=== PATIENT | female | born 1980 | race Caucasian/White ===

== ENCOUNTER 2020-05-24 14:04 | Emergency (ER) | payer OTHER ==
[~2020-05-24] VITALS: Ht 172.7 cm; Wt 73.9 kg
== END 2020-05-24 16:15 | disposition home or self-care (01) ==
LOC: ED 14:04
DX: T83.84XA Pain due to genitourinary prosthetic devices, implants and grafts, initial encounter (principal); Z88.8 Allergy status to other drugs, medicaments and biological substances; Z88.5 Allergy status to narcotic agent
CPT/HCPCS: 99283

== ENCOUNTER 2020-11-22 09:27 | Emergency (ER) | payer OTHER ==
[~2020-11-22] VITALS: Ht 172.7 cm; Wt 73.9 kg
[2020-11-22] MEDS ORDERED: METRONIDAZOLE500 MG PO (10:07)
== END 2020-11-22 12:30 | disposition home or self-care (01) ==
LOC: ED 09:27
DX: N13.2 Hydronephrosis with renal and ureteral calculous obstruction (principal); Z88.8 Allergy status to other drugs, medicaments and biological substances; Z88.5 Allergy status to narcotic agent
CPT/HCPCS: 74176; 80053; 81001; 84703; 85025; 99284-25

== ENCOUNTER 2021-11-23 20:45 | Emergency (ER) | payer OTHER ==
[~2021-11-23] VITALS: Ht 172.7 cm; Wt 69.0 kg
[~2021-11-23 20:45] MED LIST: METRONIDAZOLE500 MG PO
[2021-11-23] MEDS ORDERED: DOXYCYCLINE HY100 MG PO (21:14)
== END 2021-11-23 21:23 | disposition home or self-care (01) ==
LOC: ED 20:45
DX: L02.31 Cutaneous abscess of buttock (principal); L02.415 Cutaneous abscess of right lower limb; Z88.5 Allergy status to narcotic agent; Z88.6 Allergy status to analgesic agent
CPT/HCPCS: 99283; A9270

== ENCOUNTER 2022-09-23 10:02 | Day surgery (SDC) | payer OTHER ==
[~2022-09-23] VITALS: Ht 172.7 cm; Wt 72.2 kg
--- NOTE | ~2022-09-23 | OR ---
[facility] [address] [place], [place] [address] Draft DATE OF OPERATION: 09/23/2022 SURGEON: Janeth Jo DO PROCEDURE: Hysteroscopy Dilation and curettage. PREOPERATIVE DIAGNOSES: Abnormal uterine bleeding, thickened endometrial stripe on ultrasound. POSTOPERATIVE DIAGNOSES: Endometrial polyp, abnormal uterine bleeding. ANESTHESIA: Monitored anesthesia care. COMPLICATIONS: None. BLOOD LOSS: 5 mL. FINDINGS: Endometrial cavity distorted by a large smooth endometrial polyp based on the anterior left otherwise normal-appearing endometrium. Bilateral tubal ostia visualized. INDICATIONS: The patient is a 42-year-old female with history of having prolonged uterine bleeding. Endometrial biopsy in office was nondiagnostic due to heavy menstrual flow at the time. Risks, benefits, and alternatives to hysteroscopy D and C in the OR versus and office were discussed. The patient elected to proceed in the OR. Consents were signed. PROCEDURE IN DETAIL: The patient was taken back to the operating room where she was placed under monitored anesthesia care and positioned in dorsal lithotomy. She was prepped and draped in normal sterile fashion. Weighted speculum was placed in the vagina. Anterior lip of cervix was grasped with an Allis clamp. The cervix was easily sequentially dilated with Hegar dilators to accommodate a 6 mm scope. The scope was then advanced into the endometrial cavity using sterile saline as a distention media monitored by the Aquilex fluid distention system. Large polyp was noted as described above and initially only PATIENT NAME: ROUSSEAUGEMA OPERATIVE REPORT DATE OF : 78 REPORT #: [id number] PHYSICIAN: JANETH JO DO PCP: GRIFFIN FULTON MD REPORT IS CONFIDENTIAL AND NOT TO BE RELEASED WITHOUT AUTHORIZATION [address] [address] Draft the right tubal ostia could be visualized due to the base of the polyp obstructing visualization of the left tubal ostia. MyoSure Lite device was used to perform polypectomy followed by circumferential curettage of the endometrial cavity after which time bilateral tubal ostia were visualized with a normal-appearing endometrial cavity. All instrumentation was removed. Fluid deficit was noted to be 135 mL. Endometrial polyp and endometrial curettings were sent to pathology as a single specimen. The patient was noted to have excellent hemostasis. Sponge and instrument counts were correct. The patient was taken to recovery in stable and satisfactory condition. Janeth Jo DO EMZ/MODL /[id number] Copies: ~ PATIENT NAME: GEMA ROUSSEAU OPERATIVE REPORT DATE OF : 78 REPORT #: [id number] PHYSICIAN: JANETH JO DO PCP: GRIFFIN FULTON MD REPORT IS CONFIDENTIAL AND NOT TO BE RELEASED WITHOUT AUTHORIZATION
[~2022-09-23 10:02] MED LIST changes: +CEPHALEXIN500 M1 PO; +DOXYCYCLINE HY100 MG PO; +ONDANSETRON ODT4 MG PO
--- NOTE | 2022-09-23 12:09 | NUR ---
09/23/22 1209 Imelad Botello 1114 PT ARRIVED IN PACU SLEEPY. 1130 DR AT BEDSIDE. ALL QUESTIONS ANSWERED. 1145 SITTING AT SIDE OF BED GETTING DRESSED. 1200 DC INSTRUCTIONS GIVEN. LEFT VIA W/C.
== END 2022-09-23 12:00 | disposition home or self-care (01) ==
LOC: DS 10:02
PROVIDERS: ATTEND Obstetrics & Gynecology
PROC: 0UB48ZZ Excision of Uterine Supporting Structure, Via Natural or Artificial Opening Endoscopic (ICD-10-PCS; principal; 2022-09-23 12:25)
DX: N84.0 Polyp of corpus uteri (principal); N93.9 Abnormal uterine and vaginal bleeding, unspecified; Z98.890 Other specified postprocedural states
CPT/HCPCS: 86850; 86900; 86901; J0131; J1100; J1885; J2001; J2250; J2405; J2704; J3010; J7121